=== PATIENT | female | born 1995 | race African-American/Black ===

== ENCOUNTER 2017-02-27 05:08 | Emergency (ER) | payer SELFPAY ==
[~2017-02-27] VITALS: Ht 172.7 cm; Wt 155.0 kg
[~2017-02-27 05:08] MED LIST: IBUP800T23 PO; MACR100C2 PO; ZOFR4TAB3 SL
[2017-02-27 05:10] VITALS: BP 184/94; PULSE 86; RESP 16; TEMP 98.1; O2SAT 100
[2017-02-27] MEDS ORDERED: CLIN150C14 PO (05:33)
[2017-02-27] MEDS ORDERED: NAPR500 PO (05:33)
--- NOTE | 2017-02-27 05:37 | PD ---
HPI Chief Complaint: Oral / Dental Pain or Problem Time Seen by Provider: 05:27 Travel History International Travel<30 days: No Contact w/Intl Traveler<30days: No Traveled to known affect area: No History of Present Illness HPI Patient comes emergency Department complaining of right upper dental pain that began yesterday morning. Patient states started off as a dull ache however after eating popcorn last night started making the pain worse and turning it into a throbbing like in nature and radiates throughout the right side of her face. Patient denies anything making it better but has tried [id number] medication as well as antiseptic mouthwash. Patient denies any nausea, vomiting , fevers, difficulty swallowing, , or headaches. Patient reports she contacted her dentist office and has an appointment scheduled but is concerned of possible infection. [facility] Past Medical History Developmental Delay: No Diminished Hearing: No GERD: Yes Immunizations Current: Yes Tetanus Vaccination: Unknown ?: Not LMP: 02/15/2017 Past Surgical History Surgical History: No Previous Surgery Social History Alcohol Use: No Tobacco Use: No Substance Use: No Allergies-Medications (Allergen,Severity, Reaction): Coded Allergies: No Known Allergies (Verified Adverse Reaction, Unknown, 02/27/17) Reported Meds & Prescriptions Reported Meds & Active Scripts Active Naprosyn (Naproxen) 500 Mg Tab 500 Mg PO Q12HR PRN Clindamycin (Clindamycin HCl) 150 Mg Cap 2 Cap PO Q6H 10 Days Review of Systems Except as stated in HPI: all other systems reviewed are Neg Physical Exam Narrative GENERAL: Well-developed, overly nourished, in no acute distress, and non-ill appearing. SKIN: Focused skin assessment warm and dry. HEAD: Atraumatic. Normocephalic. EYES: Pupils equal and round. EOMI. No scleral icterus. No injection or drainage. ENT: No nasal bleeding or discharge. Mucous membranes pink and moist. Poor dentition with no visible or palpable abscess. Floor of the mouth, submandibular, and submental are all soft palpation. Uvula is midline. NECK: Trachea midline. No cervical lymphadenopathy. Supple. No nuclear rigidity. RESPIRATORY: No accessory muscle use. No respiratory distress. MUSCULOSKELETAL: No obvious deformities. No clubbing. No cyanosis. No edema. Full range of motion. NEUROLOGICAL: Awake and alert. No obvious cranial nerve deficits. Motor grossly within normal limits. Normal speech. PSYCHIATRIC: Appropriate mood and affect; insight and judgment normal. Data Data Last Documented VS Vital Signs Date Time Temp Pulse Resp B/P (MAP) Pulse Ox O2 Delivery O2 Flow Rate FiO2 02/27/17 06:06 02/27/17 05:10 98.1 86 16 100 Orders Orders Ed Discharge Order (02/27/17 05:37) Naproxen (Naprosyn) (02/27/17 06:00) [facility] Medical Decision Making Medical Screen Exam Complete: Yes Emergency Medical Condition: Yes Differential Diagnosis Dental abscess, dental [place], dentalgia, hypertension, elevated blood pressure reading, other Narrative Course The patient presented with dental pain. There is no fever. There is no significant facial swelling or evidence of cellulitis. There is poor dentition but no evidence of drainable abscess at this time. There is no evidence of significant deep or invading abscess at this time. The patient will be placed on antibiotics and pain medication. The patient was instructed to follow up with a dentist. Warnings were discussed with the patient regarding worsening of infection. The patient is to return if pain worsens, develops progressive swelling or facial redness or fever. The patient agrees with plan. The patient was found during their evaluation to have elevated blood pressures. The patient has no prior history of hypertension. The patient has no symptoms as well. The patient denied headache, changes in vision, nausea, vomiting, dizziness, weakness or loss of sensation. The patient denied and chest, back or abdominal pain. The patient also denied any shortness of breath, dyspnea on exertion, orthopnea or PND. The patient denies any edema to extremities. The patients blood pressures at discharge were at an acceptable level. I discussed with the patient that the standard of care is to not initiate antihypertensive medications at this time and for them to follow up with a primary care physician for continued outpatient evaluation, establish diagnosis of hypertension and potential initiation of blood pressure medications. Return warnings were given to the patient and the patient agreed with plan of care. Patient in no obvious distress upon re-evaluation. Patient was asked if they wanted to speak to my attending, which the patient did not wish to do at this time. Any questions/concerns in reference to patient diagnosis/condition discussed and clarified prior to patient's discharge. Reinforced sheer importance of close follow up with patient's primary physician or primary care clinic and dentist. Instructed patient to return to ED immediately, if symptoms return/worsen. Patient showed understanding of above instructions. Further instructions and recommendations were detailed in discharge paperwork. Patient ambulated without difficulty out of ED at discharge. Diagnosis Primary Impression: Infected dental carries Additional Impression: Elevated blood pressure reading Referrals: [facility] Patient Instructions: Dental Abscess (GEN), Dental Caries (DC), General Instructions, Hypertension (ED) Additional Instructions: Follow-up with your primary care physician and dentist as soon as possible. Follow-up with primary care doctor as soon possible further evaluation of your elevated blood pressure noted here today. Rinse mouth with warm salt water gargles. Take all medication as prescribed. Return to the emergency department if symptoms get worse. Med/Other Pt SpecificInfo: Prescription(s) given Scripts Naproxen (Naprosyn) 500 Mg Tab 500 MG PO Q12HR Y for PAIN SCALE 1 TO 10, #14 TAB 0 Refills Prov: Anat Mir MD 02/27/17 Clindamycin (Clindamycin) 150 Mg Cap 2 CAP PO Q6H for Infection for 10 Days, #80 CAP 0 Refills Prov: Anat iMr MD 02/27/17 Disposition: 01 DISCHARGE HOME Condition: Stable Иван Mondragon Feb 27, 2017 05:37
[2017-02-27] MEDS ORDERED: NAPROXEN 500 MG TAB PO ONE (06:00)
== END 2017-02-27 06:05 | disposition home or self-care (01) ==
LOC: NEPD 05:08
DX: K02.9 Dental caries, unspecified (principal); R03.0 Elevated blood-pressure reading, without diagnosis of hypertension
CPT/HCPCS: 99284

== ENCOUNTER 2017-03-05 00:31 | Emergency (ER) | payer SELFPAY ==
[~2017-03-05] VITALS: Ht 172.7 cm; Wt 154.5 kg
[~2017-03-05 00:31] MED LIST changes: +CLIN150C14 PO; -IBUP800T23 PO; -MACR100C2 PO; +NAPR500 PO; -ZOFR4TAB3 SL
[2017-03-05 00:32] VITALS: BP 178/82; PULSE 81; RESP 16; TEMP 98.4; O2SAT 100
[2017-03-05] MEDS ORDERED: ONDANSETRON HCL 4 MG/2 ML VIAL IVP ONE (00:45)
[2017-03-05] MEDS ORDERED: SODIUM CHLOR 0.9% 1000 ML INJ 1,000 ML IV SCH (00:45)
[2017-03-05] MEDS ORDERED: SODIUM CHLORIDE 0.9% FLUSH 10 ML FLUSH IV FLUSH PRN (00:45)
--- NOTE | 2017-03-05 00:49 | PD ---
HPI Chief Complaint: Abdominal Pain Time Seen by Provider: 00:47 Travel History International Travel<30 days: No Contact w/Intl Traveler<30days: No Traveled to known affect area: No History of Present Illness HPI 21-year-old female patient currently on clindamycin for the past 5 days for a tooth infection, states that the last few days, about 2 days after she started the antibiotic, she started having nausea, vomiting, diarrhea multiple multiple times a day. She states it has a foul smell, states that she works around C. difficile infected people and it smells like that. She denies any fevers or any other issues. She states that she has abdominal cramping pains but is not having pains currently. Modifying Factors: None Associated Signs & Symptoms: Nausea, vomiting, diarrhea Risk Factors: Currently on antibiotics PFSH Past Medical History Developmental Delay: No Diminished Hearing: No GERD: Yes Immunizations Current: Yes ?: Not LMP: 03/05/17 Past Surgical History Surgical History: No Previous Surgery Social History Alcohol Use: No Tobacco Use: No Substance Use: No Allergies-Medications (Allergen,Severity, Reaction): Coded Allergies: No Known Allergies (Verified Adverse Reaction, Unknown, 03/05/17) Reported Meds & Prescriptions Reported Meds & Active Scripts Active Naprosyn (Naproxen) 500 Mg Tab 500 Mg PO Q12HR PRN Clindamycin (Clindamycin HCl) 150 Mg Cap 2 Cap PO Q6H 10 Days Review of Systems Except as stated in HPI: all other systems reviewed are Neg Physical Exam Narrative GENERAL: Well-developed obese -[place] young female patient currently in mild distress. Awake and oriented 3. SKIN: Focused skin assessment warm/dry. HEAD: Atraumatic. Normocephalic. EYES: Pupils equal and round. No scleral icterus. No injection or drainage. ENT: No nasal bleeding or discharge. Mucous membranes pink and moist. NECK: Trachea midline. No JVD. CARDIOVASCULAR: Regular rate and rhythm. No murmur appreciated. RESPIRATORY: No accessory muscle use. Clear to auscultation. Breath sounds equal bilaterally. GASTROINTESTINAL: Abdomen soft, non-tender, nondistended. Hepatic and splenic margins not palpable. Benign. MUSCULOSKELETAL: No obvious deformities. No clubbing. No cyanosis. No edema. NEUROLOGICAL: Awake and alert. No obvious cranial nerve deficits. Motor grossly within normal limits. Normal speech. PSYCHIATRIC: Appropriate mood and affect; insight and judgment normal. Data Data Last Documented VS Vital Signs Date Time Temp Pulse Resp B/P (MAP) Pulse Ox O2 Delivery O2 Flow Rate FiO2 03/05/17 00:51 98 Room Air 03/05/17 00:32 98.4 81 16 Orders Orders Complete Blood Count With Diff (03/05/17 00:45) Comprehensive Metabolic Panel (03/05/17 00:45) Lipase (03/05/17 00:45) Urinalysis - C+S If Indicated (03/05/17 00:45) Iv Access Insert/Monitor (03/05/17 00:45) Ecg Monitoring (03/05/17 00:45) Oximetry (03/05/17 00:45) Ondansetron Inj (Zofran Inj) (03/05/17 00:45) Sodium Chlor 0.9% 1000 Ml Inj (Ns 1000 M (03/05/17 00:45) Sodium Chloride 0.9% Flush (Ns Flush) (03/05/17 00:45) Ed Urine Pregnancytest Poc (03/05/17 00:45) C Diff Toxin Pcr (03/05/17 00:47) Labs Laboratory Tests Test 03/05/17 00:50 03/05/17 01:10 White Blood Count 5.3 TH/MM3 Red Blood Count 3.98 MIL/MM3 Hemoglobin 10.9 GM/DL Hematocrit 33.0 % Mean Corpuscular Volume 82.9 FL Mean Corpuscular Hemoglobin 27.5 PG Mean Corpuscular Hemoglobin Concent 33.2 % Red Cell Distribution Width 14.2 % Platelet Count 388 TH/MM3 Mean Platelet Volume 7.7 FL Neutrophils (%) (Auto) 50.0 % Lymphocytes (%) (Auto) 37.6 % Monocytes (%) (Auto) 9.0 % Eosinophils (%) (Auto) 2.4 % Basophils (%) (Auto) 1.0 % Neutrophils # (Auto) 2.6 TH/MM3 Lymphocytes # (Auto) 2.0 TH/MM3 Monocytes # (Auto) 0.5 TH/MM3 Eosinophils # (Auto) 0.1 TH/MM3 Basophils # (Auto) 0.1 TH/MM3 CBC Comment DIFF FINAL Differential Comment Blood Urea Nitrogen 13 MG/DL Creatinine 0.79 MG/DL Random Glucose 104 MG/DL Total Protein 8.4 GM/DL Albumin 3.5 GM/DL Calcium Level 8.9 MG/DL Alkaline Phosphatase 80 U/L Aspartate Amino Transf (AST/SGOT) 15 U/L Alanine Aminotransferase (ALT/SGPT) 23 U/L Total Bilirubin 0.2 MG/DL Sodium Level 138 MEQ/L Potassium Level 3.9 MEQ/L Chloride Level 104 MEQ/L Carbon Dioxide Level 26.3 MEQ/L Anion Gap 8 MEQ/L Estimat Glomerular Filtration Rate 109 ML/MIN Lipase 149 U/L Urine Color YELLOW Urine Turbidity CLEAR Urine pH 7.0 Urine Specific [place] 1.011 Urine Protein NEG mg/dL Urine Glucose (UA) NEG mg/dL Urine Ketones NEG mg/dL Urine Occult Blood MOD Urine Nitrite NEG Urine Bilirubin NEGATIVE Urine Urobilinogen LESS THAN 2.0 MG/DL Urine Leukocyte Esterase MOD Urine RBC 25-49 /hpf Urine WBC 3-5 /hpf Urine Squamous Epithelial Cells > 8 /hpf Urine Bacteria OCC /hpf Microscopic Urinalysis Comment CULT NOT INDICATED MDM Medical Decision Making Medical Screen Exam Complete: Yes Emergency Medical Condition: Yes Medical Record Reviewed: Yes Interpretation(s) Laboratory Tests Test 03/05/17 00:50 03/05/17 01:10 Red Blood Count 3.98 MIL/MM3 (4.00-5.30) Hemoglobin 10.9 GM/DL (11.6-15.3) Hematocrit 33.0 % (35.0-46.0) Monocytes (%) (Auto) 9.0 % (0.0-8.0) Total Protein 8.4 GM/DL (6.4-8.2) Urine Occult Blood MOD (NEG) Urine Leukocyte Esterase MOD (NEG) Urine RBC 25-49 /hpf (0-3) Urine Squamous Epithelial Cells > 8 /hpf (0-5) Urine Bacteria OCC /hpf (NONE) Differential Diagnosis Gastroenteritis versus C. difficile diarrhea versus colitis versus dehydration versus electrolyte abnormalities versus sepsis Narrative Course Patient was given IV fluids, Zofran, and lab work was drawn for further evaluation. Lab work did not show any signs of leukocytosis and abdomen is fairly benign and I do not suspect an acute intra-abdominal process. Considering her history, C. difficile diarrhea is suspected. She is on clindamycin for tooth problems. She was not able to produce a stool sample for us in the ER. My plan would be to attempt. Click treat her with Flagyl. Follow-up with primary care doctor. Return for any worsening in vomiting, diarrhea, or new symptoms as needed. The plan has been discussed with her and she states understanding. Diagnosis Primary Impression: Vomiting and diarrhea Med/Other Pt SpecificInfo: Prescription(s) given (paper prescription: Flagyl 500 mg twice a day for one week, Zofran 4 mg ODT every 6 when necessary nausea and vomiting) Disposition: 01 DISCHARGE HOME Condition: Stable Trev Rodriguez MD Mar 05, 2017 00:49
[2017-03-05 00:51] VITALS: O2SAT 98
[2017-03-05 04:18] LABS: ALKALINE PHOSPHATASE 80 U/L (45-117); ALT (GPT) 23 U/L (10-53); ANION GAP 8 MEQ/L (5-15); AST (GOT) 15 U/L (15-37); BICARBONATE 26.3 MEQ/L (21.0-32.0); BLOOD UREA NITROGEN 13 MG/DL (7-18); CHLORIDE 104 MEQ/L (98-107); GLOMERULAR FILTRATION RATE 109 ML/MIN (>89); POTASSIUM 3.9 MEQ/L (3.5-5.1); SODIUM (NA) 138 MEQ/L (136-145); TOTAL BILIRUBIN ADULT 0.2 MG/DL (0.2-1.0)
[2017-03-05 04:19] LABS: AUTOMATED NEUTROPHIL # 2.6 TH/MM3 (1.8-7.7); BASOPHIL # 0.1 TH/MM3 (0-0.2); EOSINOPHIL # 0.1 TH/MM3 (0-0.4); EOSINOPHIL % 2.4 % (0.0-4.0); HEMO FLAGS DIFF FINAL; LYMPH % 37.6 % (9.0-44.0); MEAN CELL VOLUME 82.9 FL (80.0-100.0); MEAN CORPUSCULAR HEMOGLOBIN 27.5 PG (27.0-34.0); MEAN CORPUSCULAR HGB CONC 33.2 % (32.0-36.0); PLATELET COUNT 388 TH/MM3 (150-450); RED BLOOD COUNT 3.98 MIL/MM3 (4.00-5.30); RED CELL DISTRIBUTION WIDTH 14.2 % (11.6-17.2); WHITE BLOOD COUNT 5.3 TH/MM3 (4.0-11.0)
[2017-03-05 04:19] LABS: URINE COLOR YELLOW (YELLW/STRAW)
[2017-03-05 04:20] LABS: BLOOD, URINE MOD (NEG); GLUCOSE,URINE NEG (NEG); KETONE, URINE NEG (NEG); NITRITE,URINE NEG (NEG)
[2017-03-05 04:21] LABS: BACTERIA, URINE OCC /hpf; COMMENT (UR) CULT NOT INDICATED; CULTURE IF INDICATED CULT NOT INDICATED; SQUAMOUS EPITHELIAL CELL URINE > 8 /hpf (0-5)
== END 2017-03-05 04:56 | disposition home or self-care (01) ==
LOC: NEPC 00:31
DX: R11.10 Vomiting, unspecified (principal); R19.7 Diarrhea, unspecified; K21.9 Gastro-esophageal reflux disease without esophagitis
CPT/HCPCS: 80053; 81001; 83690; 84703; 85025; 96374; 99284; J2405; J7030

== ENCOUNTER 2017-08-14 14:09 | Emergency (ER) | payer SELFPAY ==
[~2017-08-14] VITALS: Ht 172.7 cm; Wt 160.0 kg
[2017-08-14 14:15] VITALS: BP 172/88; PULSE 89; RESP 16; TEMP 98.5; O2SAT 98
--- NOTE | 2017-08-14 14:44 | PD ---
HPI Chief Complaint: Back pain Time Seen by Provider: 14:23 Travel History International Travel<30 days: No Contact w/Intl Traveler<30days: No Traveled to known affect area: No History of Present Illness HPI The patient was seen and examined in the presence of the nurse. This patient complains of some low back pain. It is bilateral. It intermittently radiates to the left lower quadrant. No injury. She has no urinary complaints. She also mentioned that a few days ago she had a bit of vaginal spotting. It has resolved. It was not time for her.. She does not think she is . No vaginal discharge. Symptom severity is mild. Duration 2 days. No alleviating factors PFSH Past Medical History Developmental Delay: No Diminished Hearing: No GERD: Yes Immunizations Current: Yes ?: Not LMP: 07/19/17 Social History Alcohol Use: No Tobacco Use: No Substance Use: No Allergies-Medications (Allergen,Severity, Reaction): Coded Allergies: No Known Allergies (Verified Adverse Reaction, Unknown, 08/14/17) Reported Meds & Prescriptions Reported Meds & Active Scripts Active No Active Prescriptions or Reported Medications Review of Systems General / Constitutional: No: Fever HENT: No: Headaches Cardiovascular: No: Chest Pain or Discomfort Respiratory: No: Shortness of Breath Physical Exam Narrative GASTROINTESTINAL: Abdomen soft, non-tender, nondistended. Positive bowel sounds. No hepato-splenomegaly, or palpable masses. No guarding. Morbidly obese Back exam: No tenderness or bruising or swelling Psych: Normal mood and affect. Normal insight and judgment. SKIN: Focused skin assessment reveals no rash or ulcers. Skin is warm and dry. Palpation shows no induration or nodules. Data Data Last Documented VS Vital Signs Date Time Temp Pulse Resp B/P (MAP) Pulse Ox O2 Delivery O2 Flow Rate FiO2 08/14/17 15:39 85 16 140/83 (102) 99 Room Air 08/14/17 14:15 98.5 Orders Orders Urinalysis - C+S If Indicated (08/14/17 14:38) Ed Urine Pregnancytest Poc (08/14/17 14:38) Beta Hcg (Quant/Titer) (08/14/17 15:00) Complete Blood Count With Diff (08/14/17 15:00) Urine Culture (08/14/17 14:40) Labs Laboratory Tests Test 08/14/17 14:40 4/30/18 15:15 Urine Color YELLOW Urine Turbidity CLEAR Urine pH 6.5 Urine Specific [place] 1.020 Urine Protein NEG mg/dL Urine Glucose (UA) NEG mg/dL Urine Ketones NEG mg/dL Urine Occult Blood TRACE Urine Nitrite NEG Urine Bilirubin NEG Urine Urobilinogen 0.2 MG/DL Urine Leukocyte Esterase TRACE Urine RBC 0-3 /hpf Urine WBC 3-5 /hpf Urine WBC Clumps OCC Urine Squamous Epithelial Cells > 8 /hpf Urine Bacteria MOD /hpf Microscopic Urinalysis Comment CULTURE INDICATED White Blood Count 6.6 TH/MM3 Red Blood Count 4.44 MIL/MM3 Hemoglobin 11.9 GM/DL Hematocrit 36.5 % Mean Corpuscular Volume 82.2 FL Mean Corpuscular Hemoglobin 26.7 PG Mean Corpuscular Hemoglobin Concent 32.5 % Red Cell Distribution Width 14.4 % Platelet Count 392 TH/MM3 Mean Platelet Volume 8.6 FL CBC Comment AUTO DIFF Differential Total Cells Counted 100 Neutrophils % (Manual) 47 % Lymphocytes % 41 % Monocytes % 8 % Eosinophils % 3 % Basophils % 1 % Neutrophils # (Manual) 3.1 TH/MM3 Differential Comment FINAL DIFF MANUAL Platelet Morphology Comment NORMAL Red Cell Morphology Comment NORMAL Human Chorionic Gonadotropin, Quant 79 MIU/ML [facility] Medical Decision Making Medical Screen Exam Complete: Yes Emergency Medical Condition: Yes Medical Record Reviewed: Yes Differential Diagnosis Ectopic, UTI, mechanical back pain Narrative Course I have reviewed the patient's electronic medical record. Urine is positive. Urinalysis is negative for infection I did a bedside transabdominal ultrasound but I cannot definitively identify an intrauterine fetus. She does have a BMI 53.6 CBC is normal Beta hCG is 79 Clinical suspicion for ectopic is very low. She is asymptomatic. I suspect most likely she is having a miscarriage but it also is possible that she is just very early We discussed ectopic precautions She will try to get [facility] follow-up If she cannot then she will come back in 5-6 days to get a repeat beta hCG. This will allow for 2 doubling periods to determine whether it is rising normally or not Diagnosis Primary Impression: Threatened in early Additional Instructions: Use ectopic precautions and pelvic rest Follow-up with [facility] If you cannot get an [facility] follow-up within 5-6 days come back for repeat beta hCG titer Med/Other Pt SpecificInfo: Other Scripts No Active Prescriptions or Reported Meds Disposition: 01 DISCHARGE HOME Condition: Stable Shaji Vences MD Aug 14, 2017 14:44
[2017-08-14 15:02] LABS: BILIRUBIN, URINE NEG (NEG); BLOOD, URINE TRACE (NEG); GLUCOSE,URINE NEG (NEG); KETONE, URINE NEG (NEG); NITRITE,URINE NEG (NEG); PH, URINE 6.5 (5.0-8.5); URINE COLOR YELLOW (YELLW/STRAW); URINE LEUKOCYTE ESTERASE TRACE (NEG)
[2017-08-14 15:12] LABS: BACTERIA, URINE MOD /hpf; RBC, URINE 0-3 /hpf (0-3); SQUAMOUS EPITHELIAL CELL URINE > 8 /hpf (0-5); WHITE BLOOD CELL CLUMPS OCC
[2017-08-14 15:32] LABS: HEMATOCRIT 36.5 % (35.0-46.0); HEMOGLOBIN 11.9 GM/DL (11.6-15.3); MEAN CELL VOLUME 82.2 FL (80.0-100.0); MEAN CORPUSCULAR HEMOGLOBIN 26.7 PG (27.0-34.0); MEAN CORPUSCULAR HGB CONC 32.5 % (32.0-36.0); MEAN PLATELET VOLUME 8.6 FL (7.0-11.0); PLATELET COUNT 392 TH/MM3 (150-450); RED BLOOD COUNT 4.44 MIL/MM3 (4.00-5.30); RED CELL DISTRIBUTION WIDTH 14.4 % (11.6-17.2); WHITE BLOOD COUNT 6.6 TH/MM3 (4.0-11.0)
[2017-08-14 15:39] VITALS: BP 140/83; PULSE 85; RESP 16; O2SAT 99
[2017-08-14 16:11] LABS: BASOPHILS 1 % (0-2); LYMPHOCYTES 41 % (9-44); MONOCYTES 8 % (0-8); NEUTROPHIL # MANUAL DIFF 3.1 TH/MM3 (1.8-7.7); POLYS (SEG NEUTROPHILS) 47 % (16-70)
== END 2017-08-14 17:16 | disposition home or self-care (01) ==
LOC: PHED 14:09
DX: O20.0 Threatened abortion (principal); K21.9 Gastro-esophageal reflux disease without esophagitis; E66.01 Morbid (severe) obesity due to excess calories; Z68.43 Body mass index [BMI] 50.0-59.9, adult
CPT/HCPCS: 81001; 84702; 84703; 85007; 85027; 87086; 99283

== ENCOUNTER 2017-09-27 02:16 | Emergency (ER) | payer OTHER ==
[~2017-09-27] VITALS: Ht 172.7 cm; Wt 157.0 kg
[2017-09-27 02:22] VITALS: BP 154/94; PULSE 93; RESP 20; TEMP 98.2; O2SAT 99
[2017-09-27] MEDS ORDERED: AMOXICILLIN (TRIHYDRATE) 500 MG CAP PO ONE (03:00)
[2017-09-27] MEDS ORDERED: ACETAMINOPHEN 325 MG TAB PO ONE (03:00)
[2017-09-27] MEDS ORDERED: AMOX500T PO (03:01)
--- NOTE | 2017-09-27 03:06 | PD ---
HPI Chief Complaint: Oral / Dental Pain or Problem Time Seen by Provider: 02:56 Travel History International Travel<30 days: No Contact w/Intl Traveler<30days: No Traveled to known affect area: No History of Present Illness HPI 22-year-old black female with a 9 week estimated gestational presents emergency department with complaints of dental pain for the past week. She reports having appointment to see a dentist later next week but states that she cannot wait to be seen. She states that the pain is gotten significantly worse over the last few days. She feels that her face is becoming swollen. Symptoms are moderate. No alleviating factors. Exacerbated by chewing, hot or cold. She states that she had a tooth that broke off. She denies any vaginal complaints. No abdominal pain. No leakage of fluid. No urine symptoms. PFSH Past Medical History Developmental Delay: No Diminished Hearing: No GERD: Yes Immunizations Current: Yes Tetanus Vaccination: Unknown Influenza Vaccination: No ?: Past Surgical History Surgical History: No Previous Surgery Social History Alcohol Use: No Tobacco Use: No Substance Use: No Allergies-Medications (Allergen,Severity, Reaction): Coded Allergies: No Known Allergies (Verified Adverse Reaction, Unknown, 09/27/17) Reported Meds & Prescriptions Reported Meds & Active Scripts Active No Active Prescriptions or Reported Medications Review of Systems General / Constitutional: No: Fever Eyes: No: Visual changes HENT: Positive: Dental Difficulties, No: Headaches, Sore Throat, Gingival Bleeding, Ear Discharge, Earache Cardiovascular: No: Chest Pain or Discomfort Respiratory: No: Shortness of Breath Gastrointestinal: No: Abdominal Pain Genitourinary: No: Dysuria Musculoskeletal: No: Pain Skin: No Rash Neurologic: No: Weakness Psychiatric: No: Depression Endocrine: No: Polydipsia Hematologic/Lymphatic: No: Easy Bruising Physical Exam Narrative GENERAL: Well-developed, well-nourished in no acute distress. Nontoxic appearing. HEAD: Normocephalic, atraumatic. EYES: Pupils equal round and reactive. Extraocular motions intact. No scleral icterus. No injection or drainage. ENT: TMs clear without erythema. The external auditory canals clear. Nose: clear . Posterior pharynx is pink and moist. No tonsillar edema or exudate. Uvula midline. Airway patent. Patient has a large dental carry and tooth #14. The tooth is decayed to the gumline. Positive gingival edema and tenderness. No significant erythema. No drainage. NECK: Trachea midline.Supple, nontender, moves head freely. No central bony tenderness or spasm. CARDIOVASCULAR: Regular rate and rhythm without murmurs, gallops, or rubs. RESPIRATORY: Clear to auscultation. Breath sounds equal bilaterally. No wheezes , rales, or rhonchi. GASTROINTESTINAL: Abdomen soft, non-tender, nondistended. No hepato-splenomegaly , or palpable masses. No guarding. EXTREMITIES: No clubbing, cyanosis, or edema. No joint tenderness, effusion, or edema noted. BACK: Nontender without deformity or crepitance. No flank tenderness. Data Data Last Documented VS Vital Signs Date Time Temp Pulse Resp B/P (MAP) Pulse Ox O2 Delivery O2 Flow Rate FiO2 09/27/17 02:22 98.2 93 20 154/94 (114) 99 Orders Orders Ed Discharge Order (09/27/17 02:59) Amoxicillin (Trimox) (09/27/17 03:00) Acetaminophen (Tylenol) (09/27/17 03:00) MDM Medical Decision Making Medical Screen Exam Complete: Yes Emergency Medical Condition: Yes Medical Record Reviewed: Yes Differential Diagnosis MDM: Moderate Differential diagnoses: Dental abscess, dental caries, osteitis, cellulitis Narrative Course Patient is given Amoxil 1 g and Tylenol 650 mg p.o. This is dentalgia, dental caries Diagnosis Primary Impression: Dentalgia Additional Impressions: dental caries Patient Instructions: General Instructions Additional Instructions: Rest. Saltwater gargles. [place] oil on cotton balls. Tylenol. Amoxicillin. follow-up with a dentist as soon as possible. And return to the ER if any problems. Med/Other Pt SpecificInfo: Prescription(s) given Scripts Amoxicillin (Amoxicillin) 500 Mg Tab 500 MG PO TID for Infection for 10 Days, TAB 0 Refills Prov: Dieudonne Wheeler MD 09/27/17 Disposition: 01 DISCHARGE HOME Condition: Stable Jordi Matthew Sep 27, 2017 03:06
== END 2017-09-27 03:22 | disposition home or self-care (01) ==
LOC: NEPD 02:16
DX: O26.891 Other specified pregnancy related conditions, first trimester (principal); K02.9 Dental caries, unspecified
CPT/HCPCS: 99283